=== PATIENT | male | born 1955 | race American Indian/Alaskan Native ===

== ENCOUNTER 2017-02-15 09:10 | Emergency (ER) | payer SELFPAY ==
[2017-02-15] MEDS ORDERED: TYLENOL ONE (10:11)
[2017-02-15] MEDS ORDERED: CATAPRES ONE (10:11)
[2017-02-15] MEDS ORDERED: CATAPRES PO ONE (10:17)
[2017-02-15] MEDS ORDERED: TYLENOL PO ONE (10:18)
[2017-02-15 10:46] LABS: Basophils % (Auto) 0.7 % (0.0-1.8); Hematocrit 46.1 % (35.5-45.6); Hemoglobin 14.7 gm/dl (11.8-15.2); Mean Corpuscular HGB Conc 32 % (32-34); Mean Corpuscular Hemoglobin 28 pg (28-32); Mean Corpuscular Volume 86 fl (84-94); Platelet Count 266 K/mm3 (140-440); Red Blood Count 5.35 M/mm3 (3.65-5.03); Red Cell Distribution Width 14.7 % (13.2-15.2); White Blood Count 5.1 K/mm3 (4.5-11.0)
[2017-02-15 11:02] LABS: Anion Gap 18 mmol/L; BUN/Creatinine Ratio 17.27; Blood Urea Nitrogen 19 mg/dL (9-20); Calcium 9.4 mg/dL (8.4-10.2); Carbon Dioxide 25 mmol/L (22-30); Chloride 100.9 mmol/L (98-107); Glucose 118 mg/dL (75-100); Potassium 3.7 mmol/L (3.6-5.0); Sodium 140 mmol/L (137-145)
--- NOTE | 2017-02-15 11:21 | Emergency Department Report ---
HPI - General Chief Complaint: Shoulder Injury Time Seen by Provider: 02/15/17 11:01 - HPI HPI: This is a 62-year-old Afro-[place] Citizen male presents to the emergency department from home with complaint of a 2 month history of right shoulder pain. 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 He is right-hand dominant. He denies any chest pain , back pain, shortness of breath, nausea, vomiting or fever. Patient also presents with very elevated blood pressure having been out of his blood pressure medications for the past 2 months. He denies any headache, dizziness, blurry vision, nausea, vomiting. He has not taken anything for symptoms prior to presentation. No recent travel or sick contacts at home. He has a previous history of TIA and hypertension. His primary care doctor is Trae Carson and he goes to cardiology at [facility]. ED Past Medical Hx - Past Medical History Hx Hypertension: Yes Hx CVA: (TIA) - Surgical History Past Surgical History?: No - Social History Smoking Status: Never Smoker Substance Use Type: None - Medications Home Medications: Home Medications Medication Instructions Recorded Confirmed Last Taken Type Ibuprofen [Motrin 800 MG tab] 800 mg PO Q8HR PRN #20 tablet 02/15/17 Unknown Rx amLODIPine [Norvasc] 10 mg PO DAILY #30 tab 02/15/17 Unknown Rx ED Review of Systems ROS: Stated complaint: RT SHOULDER PAIN Other details as noted in HPI Comment: All other systems reviewed and negative Constitutional: denies: chills, fever Eyes: denies: eye pain, eye discharge, vision change ENT: denies: ear pain, throat pain Respiratory: denies: cough, shortness of breath, wheezing Cardiovascular: denies: chest pain, palpitations Gastrointestinal: denies: abdominal pain, nausea, diarrhea Genitourinary: denies: urgency, dysuria Musculoskeletal: arthralgia. denies: back pain Skin: denies: rash, lesions Neurological: denies: headache, weakness, paresthesias Physical Exam - Physical Exam Vital Signs: Vital Signs 02/15/17 02/15/17 10:04 10:19 Temperature 97.8 F Pulse Rate 84 84 Respiratory 18 19 Rate Blood Pressure 222/122 222/122 O2 Sat by Pulse 100 Oximetry Physical Exam: GENERAL: The patient is well-developed well-nourished. HEENT: Normocephalic. Atraumatic. Extraocular motions are intact. Patient has moist mucous membranes. Pupils equal reactive to light bilaterally. NECK: Supple. Trachea is midline. CHEST/LUNGS: Clear to auscultation. There is no respiratory distress noted. HEART/CARDIOVASCULAR: Regular. There is no tachycardia. There is no gallop rub or murmur. ABDOMEN: Abdomen is soft, nontender. Patient has normal bowel sounds. There is no abdominal distention. SKIN: Skin is warm and dry. NEURO: The patient is awake, alert, and oriented. The patient is cooperative. The patient has no focal neurologic deficits. The patient has normal speech. MUSCULOSKELETAL: Patient has some tenderness to palpation to the superior and anterior right shoulder but no obvious deformity. Patient has full range of motion and is able to lift the arm above his head but it is painful while doing so. Radial pulses +2 over 4 bilaterally. Cap refill less than 2 seconds. ED Course Vital Signs 02/15/17 02/15/17 10:04 10:19 Temperature 97.8 F Pulse Rate 84 84 Respiratory 18 19 Rate Blood Pressure 222/122 222/122 O2 Sat by Pulse 100 Oximetry ED Medical Decision Making - Lab Data Result diagrams: 02/15/17 10:22 02/15/17 10:22 - EKG Data -: EKG Interpreted by Mo EKG shows normal: sinus rhythm, axis, intervals, QRS complexes (LVH), ST-T waves (T-wave inversions to the lateral leads) Rate: normal - EKG Data When compared to previous EKG there are: changes noted (T-wave inversions to the lateral leads in new EKG, but previous EKG from 2012) Interpretation: LVH - Radiology Data Radiology results: image reviewed interpreted by me: X-ray of the right shoulder does not show any acute fracture, dislocation or subluxation. There are some small bony fragments seen to the lateral posterior portion that appear chronic in nature. - Medical Decision Making 62-year-old male presents to the emergency department with complaint of right shoulder pain has been going on for the past 2 months. The patient does have a job with repetitive stress motions. There is not as deformity, swelling or skin color change. Patient does have full range of motion just has some discomfort with movements. X-ray does not show any dislocation, obvious acute fracture or subluxation. Radiology read it as calcific tendinitis. Patient was placed in a sling and was given a referral for orthopedist. Patient also presented with very elevated blood pressure that came down to much more reasonable level with a dose of Catapres. The patient has been out of his medication for the past 2 months but also cannot read what he takes. I cannot find any reference to his previous blood pressure medication that I will start him on something. We discussed dietary changes for blood pressure. He will return to the ER with any worsening of symptoms or any acute distress. - Differential Diagnosis tendinitis, fracture, subluxation, strain, sprain Critical Care Time: No Critical care attestation.: If time is entered above; I have spent that time in minutes in the direct care of this critically ill patient, excluding procedure time. ED Disposition Clinical Impression: Hypertensive urgency, Noncompliance with medication regimen, Tendinitis Right shoulder pain Qualifiers: Chronicity: acute Qualified Code(s): M25.511 - Pain in right shoulder Disposition: DISCHARGED TO HOME OR SELFCARE Is pt being admited?: No Condition: Stable Instructions: Hypertension (ED), Calcific Tendinitis (ED), Shoulder Sprain (ED) Additional Instructions: Please follow-up with your primary care doctor soon regarding your blood pressure. Try to stay away from foods that are high in salt and caffeinated products to help with her blood pressure. Keep a blood pressure log. I have started you on a blood pressure medication Norvasc to be taken once daily. I have also given you a referral for a local orthopedist, Dr. Brannon, to follow up regarding her right shoulder pain. Return to the emergency department with any worsening of your symptoms or any acute distress. Prescriptions: amLODIPine [Norvasc] 10 mg PO DAILY #30 tab Ibuprofen [Motrin 800 MG tab] 800 mg PO Q8HR PRN #20 tablet PRN Reason: Pain Referrals: LORENA BRANNON MD [Staff Physician] - 3-5 Days Time of Disposition: 11:51
--- NOTE | 2017-02-15 11:41 | XRay Report ---
RIGHT SHOULDER, 3 views: History: Right shoulder pain, limited mobility. No comparison. Mild osteoarthritic changes are identified. No evidence for fracture, dislocation or ligamentous injury. Soft tissue calcification overlies the expected position of the infraspinatus tendon consistent with calcific tendinitis. The remaining soft tissues are normal. IMPRESSION: Mild degenerative changes. Calcific tendinitis of the infraspinatus tendon, chronic. No acute injury detected.
[2017-02-15] MEDS ORDERED: TORADOL IM ONE (11:51)
[2017-02-15 12:21] VITALS: BP 147/91
== END 2017-02-15 12:40 | disposition home or self-care (01) ==
LOC: ED 09:10
DX: I16.0 Hypertensive urgency (principal); M77.9 Enthesopathy, unspecified; M25.511 Pain in right shoulder; Z91.14 Patient's other noncompliance with medication regimen; Z86.73 Personal history of transient ischemic attack (TIA), and cerebral infarction without residual deficits
CPT/HCPCS: 36415; 73030; 80048; 84484; 85025; 93005; 93010; 99285; J1885